=== PATIENT | female | born 1955 | race Caucasian/White ===

== ENCOUNTER → 2021-02-27 | Day surgery (SDC) | payer OTHER | END | disposition home or self-care (01) | LOC: JRADUS-SUR 09:51 | PROVIDERS: ATTEND Internal Medicine | PROC: 0H9T3ZX Drainage of Right Breast, Percutaneous Approach, Diagnostic (ICD-10-PCS; principal; 2021-02-27) | DX: D05.11 Intraductal carcinoma in situ of right breast (principal) | CPT/HCPCS: 19083; 77065-TC; 87899; A4648 ==